=== PATIENT | female | born 1965 | race Caucasian/White ===

== ENCOUNTER 2021-07-15 12:25 | Emergency (ER) | payer OTHER, SELFPAY ==
[2021-07-15] VITALS (8 sets, daily range): BP systolic 121–140; BP diastolic 55–69; PULSE 45–56; RESP 16–17; TEMP 36.7–36.8; O2SAT 98–100; BMI 21.6
--- NOTE | 2021-07-15 12:49 | HMH.EDUTC ---
[facility] Disposition Clinical Impression: Abdominal pain Qualifiers: Abdominal location: unspecified location Qualified Code(s): R10.9 - Unspecified abdominal pain Disposition: Still a Patient Condition on Discharge: Fair Referrals: Jenaro Dodson MD [Primary Care Provider] - Medical Decision Making - Medical Records Medical records reviewed: No: I reviewed the patient's medical records. - Tyler Inquiry Pt receiving controlled substance: No Vital Signs: 07/15/21 12:40 Temperature 98.2 F Temperature Source Oral Pulse Rate [Left Radial] 55 L Respiratory Rate 17 Blood Pressure [Right Arm] 131/69 Blood Pressure Mean [Right Arm] 89 02 Sat by Pulse Oximetry 99 Medical Decision Narrative: She was transferred to the ER due to her abdominal pain and per her request. [facility] HPI - General Stated complaint: abd pain, back pain Time Seen by Provider: 07/15/21 12:49 Description of Symptoms (Recalled from Triage Doc. by RN): patient comes in today with complaints of back and right sided pain. patient states that it began 3 months ago and continues to get worse HEENT Symptoms (Recalled from RN notes): No Resp Symptoms (Recalled from RN notes): No Skin Symptoms (Recalled from RN notes): No MS Symptoms (Recalled from RN notes): Yes Functional Status (Recalled from RN notes): wnl - History of Present Illness Provider Complaint: She states that for the past 3 months she has right flank pain and lower abdominal pain. She had her appendix removed years ago. She denies any constipation, diarrhea, n/v and urinary complaints. Her pain worsened today is the reason she came here today. - Related Data Previous Rx's Medication Instructions Recorded Amoxicillin [Amoxicillin 500mg 500 mg PO TID #30 cap 03/06/19 Cap] Fluticasone Propionate [Flonase 1 spr NS DAILY #1 bottle 03/06/19 50mcg nasal spray 16gm] Allergies Allergy/AdvReac Type Severity Reaction Status Date / Time No Known Allergies Allergy Verified 07/15/21 12:43 - Worker's Comp Is this a Worker's Comp case?: No [facility] History - Hepatitis A Screen Attestation statement:: This patient has been screened for Hepatitis A risk factors. I have reviewed the patient's past medical history: Yes Medical History: Denies:: Cancer, Diabetes Mellitus Type 1, Diabetes Mellitus Type 2, MRSA Amputation: No - Social History Smoking Status: Current every day smoker # Packs/Day (cigarettes): 1 Alcohol Intake: never Occupational Status: employed ROS Obtained: Yes All systems reviewed & no additional complaints - Constitutional Constitutional: Denies chills, Denies fever(s), Denies poor appetite, Denies malaise - Eyes Eyes: Denies eye discharge - ENT Ears, Nose, Mouth, and Throat: Denies dizziness, Denies otalgia, Denies sore throat - Cardiovascular Cardiovascular: Denies chest pain - Respiratory Respiratory: Denies chest congestion, Denies cough - Gastrointestinal Gastrointestingal: Reports: as per HPI - Genitourinary Female Genitourinary: Denies dysuria, Reports flank pain, Denies urinary frequency, Denies urinary incontinence, Denies urinary hesitancy, Denies urinary urgency - Musculoskeletal Musculoskeletal: Reports back pain - Integumentary/Breasts Skin/Breast: Denies rash Physical Exam - General General appearance: alert, in no apparent distress - Head Head exam: atraumatic, normocephalic, normal inspection - Eye Eye exam: Present: normal appearance, PERRL, EOMI - ENT ENT exam: Present: normal exam, normal oropharynx, mucous membranes moist, TM's normal bilaterally, normal external ear exam - Neck Neck exam: Present: normal inspection, full ROM, trachea midline. Absent: meningismus, lymphadenopathy - Chest Chest inspection: Present: normal inspection, symmetric chest wall rise. Absent: tenderness - Respiratory Respiratory exam: Present: normal lung sounds bilaterally. Absent: respiratory distress - Cardiova
--- NOTE | 2021-07-15 13:35 | CT_ITS ---
FINAL REPORT CLINICAL HISTORY: hx malignancy, progressive right sided abd pain FINDINGS: CT OF THE ABDOMEN AND PELVIS WITH CONTRAST Axial CT images of the abdomen and pelvis were obtained after the administration of oral and iv contrast. Coronal reformatted images were also obtained and reviewed.This study was performed with techniques to keep radiation doses as low as reasonably achievable (ALARA). Individualized dose reduction techniques using automated exposure control or adjustment of mA and/or kV according to the patient's size were employed. Abdomen: There is mild bibasilar atelectasis.. The heart is normal in size. The liver has an unremarkable appearance, without evidence of mass or biliary ductal dilatation. There are gallstones in the gallbladder. The spleen is unremarkable. No adrenal mass is present. The tail of the pancreas is mildly prominent but without focal mass, of uncertain significance. The kidneys are normal, without evidence of mass or hydronephrosis. The aorta is normal in caliber. There is no free fluid or adenopathy. No mass or abnormal fluid collection is seen. Pelvis: The appendix is not seen consistent with history of prior appendectomy. The urinary bladder is unremarkable. No inflammatory process is seen. There is no evidence of mass or adenopathy. There is no evidence of bowel obstruction. There are prominent pelvic veins of uncertain significance which can be seen with pelvic congestion syndrome. IMPRESSION: Cholelithiasis. Prominent tail of the pancreas of uncertain significance. Consider follow-up CT or abdominal MRI. Prominent pelvic veins of uncertain significance which can be seen with pelvic congestion syndrome. Reviewed, Interpreted and Dictated by Hugo Rai III, MD Transcribed by Laurel Oh Authenticated and [facility]
--- NOTE | 2021-07-15 13:38 | HMH.EDGENADL ---
ED Disposition Clinical Impression: Cholelithiasis, Pancreatic abnormality Abdominal pain Qualifiers: Abdominal location: unspecified location Qualified Code(s): R10.9 - Unspecified abdominal pain Disposition: Still a Patient Condition on Discharge: Good Instructions: DI for Acute Abdominal Pain Referrals: Jenaro Dodson MD [Primary Care Provider] - - Critical Care Critical Care Time: No Attestation: On 07/15/21, the high probability of a clinically significant, sudden or life threatening deterioration of the following system(s) required my full and direct attention, intervention and personal management. The time I documented below is in addition to time spent performing reported procedures but includes the following listed in this critical care notation. Medical Decision Making - Tyler Inquiry Pt receiving controlled substance: No Vital Signs: 07/15/21 12:40 07/15/21 13:31 07/15/21 13:35 Temperature 98.2 F 98.0 F Temperature Source Oral Oral Pulse Rate 54 L Pulse Rate [Left Radial] 55 L 48 L Respiratory Rate 17 16 16 Blood Pressure 138/66 Blood Pressure [Right Arm] 131/69 125/66 Blood Pressure Mean 97 Blood Pressure Mean [Right Arm] 89 85 Blood Pressure Source [Right Arm] Automatic Cuff Blood Pressure Position [Right Arm] Sitting 02 Sat by Pulse Oximetry 99 100 100 Oxygen Delivery Method Room Air Room Air 07/15/21 14:01 07/15/21 14:23 07/15/21 15:24 Temperature Temperature Source Pulse Rate 52 L Pulse Rate [Left Radial] 56 L 50 L Respiratory Rate 16 Blood Pressure 138/56 L Blood Pressure [Right Arm] 138/56 L 133/55 L Blood Pressure Mean 83 Blood Pressure Mean [Right Arm] 83 81 Blood Pressure Source [Right Arm] Automatic Cuff Blood Pressure Position [Right Arm] Sitting Sitting 02 Sat by Pulse Oximetry 99 100 99 Oxygen Delivery Method Room Air Room Air Room Air 07/15/21 15:31 Temperature Temperature Source Pulse Rate 50 L Pulse Rate [Left Radial] Respiratory Rate 16 Blood Pressure 121/58 L Blood Pressure [Right Arm] Blood Pressure Mean 72 Blood Pressure Mean [Right Arm] Blood Pressure Source [Right Arm] Blood Pressure Position [Right Arm] 02 Sat by Pulse Oximetry 100 Oxygen Delivery Method Room Air - Lab Data Lab Results 07/15/21 13:03: Urine Color Yellow, Urine Appearance Clear, Urine pH 6.0, Ur Specific [place] 1.025, Urine Protein Negative, Urine Glucose (UA) Negative, Urine Ketones Negative, Urine Blood Trace, Urine Nitrate Negative, Urine Bilirubin Negative, Urine Urobilinogen 0.2, Ur Leukocyte Esterase Negative 07/15/21 13:44: WBC 4.7 L, RBC 3.81 L, Hgb 12.2, Hct 37.9, MCV 99.5 H, MCH 32.1 H, MCHC 32.3, RDW 13.6, Plt Count 248, MPV 8.3, Neut % (Auto) 46.8, Lymph % (Auto) 40.6, [place] % (Auto) 8.8, Eos % (Auto) 2.5, Baso % (Auto) 1.3, Neut # (Auto) 2.2, Lymph # (Auto) 1.9, [place] # (Auto) 0.4, Eos # (Auto) 0.1, Baso # (Auto) 0.1 07/15/21 13:44: Sodium 138, Potassium 4.1, Chloride 106, Carbon Dioxide 28, Anion Gap 8.1, BUN 12, Creatinine 0.60, Estimated Creat Clear 97, Estimated GFR 103, Est GFR ( Amer) 125, Glucose 106 H, Calcium 9.2, Total Bilirubin 0.4, AST 25, ALT 14, Alkaline Phosphatase 51, Total Protein 7.2, Albumin 4.4, Globulin 2.8, Albumin/Globulin Ratio 1.6, Lipase 78 07/15/21 13:44: Lactate 0.6 L Result diagrams: 07/15/21 13:44 07/15/21 13:44 Orders (Tests/Meds): ED MEDICATIONS Discontinued Medications Generic Name Dose Route Start Last Admin Trade Name No PRN Reason Stop Dose Admin Iopamidol 75 ml 07/15/21 14:44 07/15/21 14:45 Iopamidol-370 (76%);100ml Bottle IV 07/15/21 14:45 75 ml ONCE ONE Administration Ketorolac Tromethamine 15 mg 07/15/21 13:37 07/15/21 13:43 Ketorolac 30mg/Ml Vial IV 07/15/21 13:38 15 mg ONCE ONE Administration Sodium Chloride 10 ml 07/15/21 14:44 07/15/21 14:45 Sodium Chloride 0.9% 10ml Syr (Rad Only) IV 07/15/21 14:45 10 ml ONCE ONE Administratio
[2021-07-15 13:46] LABS: Apearance,Urine Clear (Clear); Bilirubin,Urine Negative (Negative); Blood, Urine Trace (Negative); Color,Urine Yellow (Yellow); Glucose,Urine (UA) Negative (Negative); Ketones,Urine Negative (Negative); Protein,Urine Negative (Negative); Specific Gravity, Urine 1.025 (1.005-1.030); UTC Leukocyte Esterase,Urine Negative (Negative); UTC Nitrate,Urine Negative (Negative); Urobilinogen,Urine 0.2 EU/dl (0.2)
[2021-07-15 14:01] LABS: Basophils # 0.1 K/mm3 (0-0.2); Basophils % 1.3 % (0.1-2.0); Chloride 106 mmol/L (98-107); Eosinophils # 0.1 K/mm3 (0.0-0.4); Eosinophils % 2.5 % (0.1-12.0); Hematocrit 37.9 % (37.0-47.0); Hemoglobin 12.2 g/dL (12.2-16.2); Lymphocytes # 1.9 K/mm3 (0.7-4.5); Lymphocytes % 40.6 % (10-50); Mean Corpuscular HGB Conc 32.3 g/dL (31.8-35.4); Mean Corpuscular Hemoglobin 32.1 pg (27.0-31.2); Mean Corpuscular Volume 99.5 fl (81-99); Mean Platelet Volume 8.3 fl (7.4-10.4); Monocytes # 0.4 K/mm3 (0.1-1.0); Monocytes % 8.8 % (1.7-9.3); Neutrophils # 2.2 K/mm3 (1.8-7.8); Neutrophils % 46.8 % (37.0-80.0); Platelet Count 248 K/mm3 (142-424); Potassium 4.1 mmoL/L (3.5-5.1); Red Blood Count 3.81 M/mm3 (4.20-5.40); Red Cell Distribution Width 13.6 % (11.5-17.5); Sodium 138 mmol/L (136-145); White Blood Count 4.7 K/mm3 (4.8-10.8)
[2021-07-15 14:04] LABS: Alanine Aminotransferase 14 U/L (12-78); Albumin Level 4.4 g/dl (3.5-5.0); Albumin/Globulin Ratio 1.6 (1.1-1.8); Alkaline Phosphatase 51 U/L (38-126); Anion Gap 8.1 mEq/L (5-15); Aspartate Amino Transferase 25 U/L (14-36); Bilirubin,Total 0.4 mg/dl (0.2-1.3); Blood Urea Nitrogen 12 mg/dl (7-17); Calcium 9.2 mg/dl (8.4-10.2); Carbon Dioxide 28 mmol/L (22.0-30.0); Creatinine Clearance Estimated 97 mL/min (50-200); Estimated Glomerular Filt Rate 103 ml/min (>60); GFR (African American) 125 ML/MIN (>60); Globulin 2.8 g/dL (1.3-3.2); Glucose 106 mg/dl (74-100); Lactic Acid 0.6 mmol/L (0.7-2.1); Lipase 78 U/L (23-300); Total Protein,Serum 7.2 g/dl (6.3-8.2)
--- NOTE | 2021-07-15 14:24 | PC.NURSE ---
checked on status of CT, contacted radiology at this time
--- NOTE | 2021-07-15 14:24 | PC.NURSE ---
Called ED CT phone and no answer; Called radiology and spoke to Marky letting her know that we had a CT in room 9. She was going to inform [employer]
--- NOTE | 2021-07-15 14:25 | PC.NURSE ---
Dr. Bunn at speaking with patient
--- NOTE | 2021-07-15 14:29 | PC.NURSE ---
pt to radiology with lead principal technical architect by wheelchair
--- NOTE | 2021-07-15 15:12 | PC.NURSE ---
checked on pt at this time, additional warm blanket given to pt. Pt states no other needs at this time. notified pt we are waiting on Ct scan results. Will continue to monitor
== END 2021-07-15 16:36 | disposition home or self-care (01) ==
LOC: UTC 13:06 → ER 13:19
PROVIDERS: Student in an Organized Health Care Education/Training Program; Emergency Provider Nurse Practitioner Family; PCP Family Medicine
DX: R10.31 Right lower quadrant pain (principal); R30.0 Dysuria; R31.9 Hematuria, unspecified; R11.2 Nausea with vomiting, unspecified; R19.7 Diarrhea, unspecified; M54.9 Dorsalgia, unspecified; E03.9 Hypothyroidism, unspecified; F32.A Depression, unspecified; R53.82 Chronic fatigue, unspecified; N83.209 Unspecified ovarian cyst, unspecified side; F17.210 Nicotine dependence, cigarettes, uncomplicated; Z79.899 Other long term (current) drug therapy; Z78.0 Asymptomatic menopausal state
CPT/HCPCS: 74177; 80053; 81003; 83605; 83690; 85025; 87086; 96374; 99285; Q9967

== ENCOUNTER → 2021-07-27 08:48 | Outpatient (CLI) | payer OTHER, SELFPAY ==
--- NOTE | 2021-07-27 08:48 | US_ITS ---
FINAL REPORT CLINICAL HISTORY: RLQ pain; abnormal CT scan FINDINGS: Transvaginal sonographic images of the pelvis were obtained. The uterus measures 5.2 x 2.8 x 3.6 cm. The endometrium measures 4 mm, which is within normal limits. No uterine mass is identified. The right ovary has been removed. The left ovary measures 2.2 cm in length. Normal blood flow seen to the left ovary. There is no evidence of free fluid. There are prominent pelvic vessels, left greater than right, of uncertain significance can be seen with pelvic congestion syndrome. IMPRESSION: Prominent pelvic vessels which can be seen with pelvic congestion syndrome. Absent right ovary. Reviewed, Interpreted and Dictated by Hugo Rai III, MD Transcribed by Ana María Taylor Authenticated and [facility]
--- NOTE | 2021-07-27 08:48 | US_ITS ---
FINAL REPORT CLINICAL HISTORY: RUQ pain; back pain FINDINGS: Sonographic images of the right upper quadrant were obtained. The pancreas is partially obscured.The liver has an unremarkable appearance. There are gallstones in the gallbladder. There is no evidence of biliary ductal dilatation.The common duct measures 2 mm. Limited images of the right kidney are unremarkable. IMPRESSION: Cholelithiasis. Reviewed, Interpreted and Dictated by Hugo Rai III, MD Transcribed by Ana María Taylor Authenticated and [facility]
--- NOTE | 2021-07-27 09:51 | MR_ITS ---
FINAL REPORT CLINICAL HISTORY: Pancreas protocol. ABNORMAL CT SCAN. NAUSEA. RIGHT UPPER QUADRANT ABD PAIN. 12ML PROHANCE GIVEN. COMPARISON: CT scan of the abdomen and pelvis dated July 15, 2021 FINDINGS: MRCP was also performed, 3D imaging was obtained and reviewed. Multiplanar MR imaging of the abdomen was performed without and with contrast. Images of the liver reveal no evidence of mass. There is no evidence of biliary ductal dilatation. There is decreased signal in the dependent portion of the gallbladder consistent with gallstones. There is no evidence of bile duct stone or stricture. The visualized pancreatic duct is normal. The tail the pancreas again appears somewhat prominent but no evidence of mass or contrast enhancement is seen within the pancreas and may represent variation. No other mass or adenopathy is identified. No abnormal fluid collection is seen. No abnormal contrast enhancement is seen on the postcontrast images. IMPRESSION: Cholelithiasis. No evidence of bile duct stone or stricture. Persistent prominence of the tail of the pancreas without mass or contrast enhancement. Reviewed, Interpreted and Dictated by Hugo Rai III, MD Transcribed by Laurel Oh Authenticated and . [facility]
== END ==
PROVIDERS: PCP Family Medicine; Visit Provider Surgery
DX: R10.9 Unspecified abdominal pain (principal); R10.2 Pelvic and perineal pain; Q45.3 Other congenital malformations of pancreas and pancreatic duct
CPT/HCPCS: 74183; 76705; 76830; A9576

== ENCOUNTER → 2021-08-07 10:07 | Outpatient (CLI) | payer OTHER, SELFPAY ==
[2021-08-07 10:35] LABS: Basophils # 0.1 K/mm3 (0-0.2); Basophils % 2.5 % (0.1-2.0); Eosinophils # 0.2 K/mm3 (0.0-0.4); Eosinophils % 3.5 % (0.1-12.0); Hematocrit 39.2 % (37.0-47.0); Hemoglobin 12.1 g/dL (12.2-16.2); Lymphocytes % 44.4 % (10-50); Mean Corpuscular HGB Conc 30.9 g/dL (31.8-35.4); Mean Corpuscular Hemoglobin 31.6 pg (27.0-31.2); Mean Corpuscular Volume 102.3 fl (81-99); Mean Platelet Volume 8.8 fl (7.4-10.4); Monocytes # 0.4 K/mm3 (0.1-1.0); Neutrophils # 1.8 K/mm3 (1.8-7.8); Neutrophils % 39.6 % (37.0-80.0); Platelet Count 261 K/mm3 (142-424); Red Blood Count 3.83 M/mm3 (4.20-5.40); Red Cell Distribution Width 13.4 % (11.5-17.5); White Blood Count 4.4 K/mm3 (4.8-10.8)
[2021-08-07 10:58] LABS: Chloride 108 mmol/L (98-107); Potassium 5.1 mmoL/L (3.5-5.1); Sodium 138 mmol/L (136-145)
[2021-08-07 11:01] LABS: Alanine Aminotransferase 13 U/L (12-78); Albumin Level 4.3 g/dl (3.5-5.0); Albumin/Globulin Ratio 1.7 (1.1-1.8); Alkaline Phosphatase 46 U/L (38-126); Anion Gap 7.1 mEq/L (5-15); Aspartate Amino Transferase 23 U/L (14-36); Bilirubin,Total 0.4 mg/dl (0.2-1.3); Blood Urea Nitrogen 12 mg/dl (7-17); Calcium 9.2 mg/dl (8.4-10.2); Carbon Dioxide 28 mmol/L (22.0-30.0); Estimated Glomerular Filt Rate 87 ml/min (>60); GFR (African American) 105 ML/MIN (>60); Globulin 2.5 g/dL (1.3-3.2); Glucose 87 mg/dl (74-100); Total Protein,Serum 6.8 g/dl (6.3-8.2)
== END ==
PROVIDERS: PCP Family Medicine; Visit Provider Surgery
DX: Z01.812 Encounter for preprocedural laboratory examination (principal); Z20.822 Contact with and (suspected) exposure to COVID-19
CPT/HCPCS: 36415; 80053; 85025; C9803; U0003; U0005

== ENCOUNTER 2021-08-10 09:54 | Day surgery (SDC) | payer OTHER, SELFPAY ==
[2021-08-05 09:51] VITALS: BMI 21.6
[2021-08-10] VITALS (11 sets, daily range): BP systolic 108–138; BP diastolic 61–99; PULSE 48–88; RESP 15–18; TEMP 36.2–43; O2SAT 85–100
--- NOTE | 2021-08-10 11:23 | HMH.ANESCL ---
[facility] Anesthesia Checklist - Patient Identification Patient Identification: Arm Band - Structural Data Admitted From: Home Planned Operative Procedure/s: Laparoscopic Cholecystectomy Consent for Planned Operative Procedure(s) Verified: Yes Verified Documents: Surgical Consent, History and Physical - NPO Status Verified Time NPO: 00:00 - Additional verifications Anesthesia Reactions: No Hx Blood Transfusions: No Blood Transfusion Reaction: No - Airway Assessment C-Spine Mobility Assessed: Yes (mp2) TMJ Mobility Assessed: Yes Dentition: Good Dentition - Neurological Assessment Level of Consciousness: Awake, Alert - Anesthesia Plan Anesthesia Risk discussed: Yes Anesthesia Plan: Verified ASA Class: II Anesthesia Type: General [facility] History I have reviewed the patient's past medical history: Yes Medical History: Reports:: Anxiety Denies:: Cancer, Diabetes Mellitus Type 1, Diabetes Mellitus Type 2, Internal Pacemaker, MRSA, Seizures *Have you ever received a pneumonia vaccine?: No *Have you received a flu vaccine this season?: No Other Medical History: Reports: Hypothyroidism. Denies: Blood Transfusion Reaction Anesthesia experience/problems:: nac Other Surgeries: Yes: Other. No: Pacemaker Amputation: No - *Social History Last grade of school completed: 11th or 12th Smoking Status: Current every day smoker Tobacco Type: e-cigarettes # Packs/Day (cigarettes): 1 Alcohol Intake: never Substance Use Type: denies use *Occupational Status:: employed Housing: house Household Members: spouse *Travel in the last 8 weeks: None Family Hx:: No significant family history
--- NOTE | 2021-08-10 13:43 | HMH.OPNOTE ---
Date of procedure: 08/10/21 Pre-op Diagnosis:: Symptomatic gallstones Post-op Diagnosis:: Same Procedure performed:: Laparoscopic cholecystectomy Surgeon:: Hugo Arreola MD Anesthesia: DIPESH Estimated blood loss (mL): 15 Clinical Note:: Patient presents to the office for cholecystectomy. She Is a 55-year-old female referred by the emergency department for gallstones.? Her primary care provider is Dillon? MD [facility].? She had presented to the emergency department on 07/15/2021 with a several month history of symptoms of right-sided abdominal pain in and right-sided back pain.? 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 She describes pain in the right hemiabdomen and epigastrium for about 3 months.? It is characterized as a soreness .? She has occasional sharp pains.? 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 She does have some exacerbations positionally.? Her symptoms have been progressive.? She does describe some nausea, bloating, and diarrhea.? She states that she was told she had microscopic hematuria based on urinalysis in the emergency department but denies any gross hematuria.? Work-up in the emergency department included CT scan which revealed findings of cholelithiasis.? She also had prominent tail of the pancreas of uncertain significance.? Recommendations by radiology were for follow-up CT scan or abdominal MRI.? She also had prominent pelvic veins of uncertain significance which was felt to be potentially seen with pelvic congestion syndrome .? After my initial consultation due to the somewhat atypical symptoms as well as the findings in her pelvis and pancreas I had her undergo definitive ultrasound of the gallbladder. This reveals uncomplicated gallstones. She saw gynecology for findings of pelvic congestion syndrome. Recommendations were made. She did undergo MRI of the pancreas which revealed some prominence of the tail the pancreas which is felt to be anatomic variant without mass or cyst. She has had significantly progressive symptoms of pain in the right upper quadrant with radiation to her right back and shoulder. She has had severe epigastric pain. This often takes her breath. She had contemplated going to the emergency department. She wished to pursue cholecystectomy. Operative findings:: She had a somewhat distended gallbladder. Mildly enlarged liver. Operative note:: Consent was obtained and patient was taken to the operating room. She was given preoperative intravenous antibiotics. In the operating room she was placed in a supine position. General anesthesia was induced via endotracheal tube. Abdomen was prepped and draped in the standard surgical fashion. Subumbilical skin incision was made and while performing abdominal wall lift Veress needle was inserted. CO2 pneumoperitoneum was achieved to 15 mmHg. 11 mm optical trocar was inserted at the umbilicus. Intraperitoneal contents were visualized. She was positioned in reverse Trendelenburg left side down. A couple 5 mm trochars were inserted in the right upper abdomen. 10 mm trocar was inserted in the epigastrium. Gallbladder was retracted anteriorly and superiorly over the dome of the liver. Infundibulum of the gallbladder was retracted anterior laterally. Blunt dissection was carried out at the neck of the gallbladder bluntly incising the visceral peritoneum. Dissection was carried out clearly identifying the cystic duct and cystic artery. Cystic duct was multiply clipped and sharply divided. Cystic artery was carefully coagulated with MINDY ultrasonic robotic mj and divided. Gallbladder was dissected free from the liver in a retrograde fashion using MINDY ultrasonic harmonic mj. Gallbladder was placed within an Endo Catch retrieval device and removed from the peritoneal cavity via the umbilical trocar site. There was good hemostasis. Mansi w
--- NOTE | 2021-08-10 13:54 | P.PN_ITS ---
[facility] Anesthesia Record Part I Intake, IV Amount: 800 Estimated blood loss (mL): 20 Urine output (mL): 0 Blood Pressure: 133/99 SaO2: 98 Pulse Rate: 83 Respiratory Rate: 15 Temperature: 97.2 F Patient is:: Awake Stable to PACU at:: 13:50
--- NOTE | 2021-08-10 14:25 | SUR.PHASEII ---
Rhythm strip printed in PACU unable to pick up attendant accurate reading due to patient shivering. Rhythm rechecked upon arrival to post-op and was NSR but unable to print strip for chart D/T equipment issue. Witnessed per Larisa Hebert RN
--- NOTE | 2021-08-11 08:04 | HMH.ANESII ---
[facility] Anesthesia Record Part II Discharge Time: 14:20 Destination: Surgical Day Care (OP Surgery) PACU nurse assessment reviewed?: Yes Patient Condition:: Good Anesthesia Complications:: None Swallowing reflex intact?: Yes Cyanosis?: No Blood Pressure: 122/73 Pulse Rate: 70 Temperature: 97.2 F Mental Status: Alert & Oriented Pain level:: 0 Nausea and/or vomitting:: None Intake, IV Amount: 0
[2021-08-11 08:05] VITALS: BP 122/73; PULSE 70; TEMP 36.2
== END 2021-08-10 14:55 | disposition home or self-care (01) ==
LOC: OR 09:54
PROVIDERS: PCP Family Medicine; Visit Provider Surgery
PROC: 0FT44ZZ Resection of Gallbladder, Percutaneous Endoscopic Approach (ICD-10-PCS; CPT 47562; principal; 2021-08-10 11:30)
DX: K80.12 Calculus of gallbladder with acute and chronic cholecystitis without obstruction (principal); F41.9 Anxiety disorder, unspecified; Z72.0 Tobacco use; Z79.899 Other long term (current) drug therapy
CPT/HCPCS: 47562; 96374; J2405

== ENCOUNTER → 2022-03-09 09:40 | Outpatient (CLI) | payer OTHER, SELFPAY ==
--- NOTE | 2022-03-09 09:40 | CT_ITS ---
FINAL REPORT TECHNIQUE: After the administration of intravenous contrast, axial images were obtained through the abdomen and pelvis by computed tomography. The study was performed with techniques to keep radiation dose as low as reasonably achievable, (ALARA). Individual dose reduction techniques using automated exposure control or adjustment of mA and/or kV according to the patient's size were employed. CLINICAL HISTORY: pancreatic protocol. right sided abd pain COMPARISON: 07/15/2021 and MRI dated 07/27/2021 FINDINGS: Abdomen: The lung bases are clear. The liver is normal in size and attenuation. There has been interval cholecystectomy. There is no evidence of biliary ductal dilatation. The spleen is unremarkable. The adrenals are normal. There is persistent fullness of the pancreatic tail without a well-defined mass. There is a less than 1 cm left renal cyst. The aorta is normal in caliber. There is no free fluid or adenopathy. Pelvis: The appendix is not identified. The urinary bladder is unremarkable. There is no free fluid or adenopathy. IMPRESSION: Persistent fullness of the pancreatic tail without a well-defined mass. Reviewed, Interpreted and Dictated by Hugo Rai III, MD Transcribed by Cristiana Brock Authenticated and [facility]
== END ==
PROVIDERS: PCP Family Medicine; Visit Provider Surgery
DX: R10.9 Unspecified abdominal pain (principal)
CPT/HCPCS: 74177; Q9967

== ENCOUNTER 2022-05-13 06:28 | Day surgery (SDC) | payer OTHER, SELFPAY ==
[2022-05-13] VITALS (8 sets, daily range): BP systolic 85–124; BP diastolic 50–71; PULSE 56–85; RESP 16–18; TEMP 36.1–36.3; O2SAT 94–100; BMI 21.2
--- NOTE | 2022-05-13 07:08 | EXP.ANES.CKL ---
[facility] Disclaimer: The information contained in this section may have been updated after the patient was seen, as this information can be updated by other users. 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 caffeine: Yes special olga needs: No agree to transfusion: No do you feel safe at home: Yes victim of physical abuse: No victim of emotional abuse: No victim of sexual abuse: No would you like helpful sources: No [facility] Anesthesia Checklist Patient Identification Patient Identification: Arm Band and Verbal (Name & ) Structural Data Admitted From: Home Planned Operative Procedure/s: EGD/Colonoscopy Consent for Planned Operative Procedure(s) Verified: Yes NPO Status Verified Time NPO: 00:00 Additional verifications Anesthesia Reactions: No Hx Blood Transfusions: No Blood Transfusion Reaction: No Airway Assessment C-Spine Mobility Assessed: Yes TMJ Mobility Assessed: Yes Dentition: Good Dentition Neurological Assessment Level of Consciousness: Awake Hx Seizures: No Numbness or tingling in extremities: No Anesthesia Plan Anesthesia Risk discussed: Yes Anesthesia Plan: Verified ASA Class: II Anesthesia Type: MAC
--- NOTE | 2022-05-13 08:14 | HMH.SCOPE ---
Procedure: Date: 05/13/22 Patient Date of :: 1965 Procedure Performed:: Esophagogastroduodenoscopy with biopsies Total colonoscopy to terminal ileum with polypectomy using snare and biopsy forceps Indications:: Patient presents for EGD and colonoscopy.? She is a 56-year-old female whom I had seen previously for gallbladder disease.? She had undergone laparoscopic cholecystectomy on 08/10/2021.? She had been having symptoms of severe epigastric pain and pain in the right upper quadrant with radiation into her back.? Pathology revealed chronic cholecystitis with cholelithiasis.? She does describe some ongoing symptoms of difficulty laying on her right side when sleeping on that side.? She was found to have a somewhat distended gallbladder with mildly enlarged liver.? Patient is always had some symptoms positionally.? She had been evaluated in the emergency department prior to her cholecystectomy and imaging revealed gallstones but she also had prominence of the tail of the pancreas of uncertain significance.? She had an MRI of the abdomen (pancreas) which revealed prominence of the tail the pancreas which was felt to be anatomic variant without mass or cyst.? She recently presented to the office with some ongoing symptoms of some severe epigastric pain.? She states that is often takes her breath.? This is similar to before.? She describes it as feeling as though she is punched in the abdomen.? It feels like a ball.? She has had some diarrhea.? She denies any prior history of ulcer disease.? She was scheduled for colonoscopy with me in May.? I felt that the unclear as to the etiology of her constellation of symptoms.? I had her undergo CT scan with pancreatic protocol.? I felt that given the diarrhea it is possible she could have a functional pancreatic lesion.? CT scan reveals persistent fullness of the pancreatic tail without mass or cyst. I had plan to expedite colonoscopy and EGD due to her upper abdominal symptoms. However the patient wished to wait until May to perform EGD and colonoscopy. She does state that her upper abdominal symptoms have improved significantly. She has retired from work and she feels that this may have some influence on this. Performing Provider:: Hugo Arreola MD Referring Provider:: Romaine Dodson MD Sedation:: MAC sedation Procedure:: Patient history was obtained and appropriate physical examination was performed. Patient's medications and allergies were reviewed. Informed consent was obtained after explaining the benefits, alternatives, and risks of the procedure including, but not limited to, bleeding, perforation, missed lesions, and adverse reaction to anesthesia medications. Patient was transported to endoscopy procedure room. Patient was connected to monitoring devices. Throughout the procedure the patient's blood pressure, pulse, and oxygen saturations were monitored continuously. Patient identification and planned procedure were verified by the staff. Attention was first turned to upper endoscopy. Olympus endoscope was inserted via the oropharynx. Esophagus was cannulated. Overall esophagus appeared relatively unremarkable with some minor esophageal dysmotility and minimal chronic esophagitis. Gastroesophageal junction was encountered at 38 cm. Stomach was cannulated and insufflated. Retroflexion revealed no evidence of any pathologic hiatal hernia. There was some linear gastropathy in the antrum. Pylorus was traversed. Duodenum appeared unremarkable. Endoscope was withdrawn into the gastric lumen and a couple of antral biopsies were obtained. Couple of distal esophageal biopsies were obtained at the gastroesophageal junction to evaluate for Mendosa's esophagus. A couple of distal esophageal biopsies were obtained to assess for chronic esophagitis. Stomach was desufflated and the endoscope was withdrawn. Patient was positioned in lateral decubitus position for colonoscopy. Digital anorectal
== END 2022-05-13 09:21 | disposition home or self-care (01) ==
PROVIDERS: PCP Family Medicine; Visit Provider Surgery
PROC: 0DJ08ZZ Inspection of Upper Intestinal Tract, Via Natural or Artificial Opening Endoscopic (ICD-10-PCS; CPT 43235; principal; 2022-05-13 07:30)
DX: Z12.11 Encounter for screening for malignant neoplasm of colon (principal); D12.5 Benign neoplasm of sigmoid colon; K57.30 Diverticulosis of large intestine without perforation or abscess without bleeding; K31.9 Disease of stomach and duodenum, unspecified; K20.90 Esophagitis, unspecified without bleeding; F17.210 Nicotine dependence, cigarettes, uncomplicated; Z79.899 Other long term (current) drug therapy
CPT/HCPCS: 43239; 45380; 45385; J2704

== ENCOUNTER → 2022-12-21 09:09 | Outpatient (CLI) | payer OTHER, SELFPAY ==
[2022-12-21 10:30] LABS: Free T4 (Free Thyroxine) 1.43 ng/dl (0.78-2.19)
[2022-12-21 10:43] LABS: Thyroid Stimulating Hormone 3.97 uIU/mL (0.465-4.68)
[2022-12-22 15:07] LABS: Tissue Transglutaminase IgA Ab <2 U/mL (0-3)
== END ==
PROVIDERS: PCP Family Medicine; Visit Provider Internal Medicine Endocrinology, Diabetes & Metabolism
DX: E03.9 Hypothyroidism, unspecified (principal)
CPT/HCPCS: 36415; 83516; 84439; 84443

== ENCOUNTER 2023-05-09 09:42 | Outpatient (CLI) | payer OTHER, SELFPAY ==
--- NOTE | 2023-05-09 09:49 | XR_ITS ---
FINAL REPORT CLINICAL HISTORY: RT KNEE PAIN..knot on the back FINDINGS: Right knee Four views were obtained. There is no acute fracture or dislocation. There are mild degenerative changes. No joint effusion is identified. No soft tissue abnormality is identified. IMPRESSION: Mild degenerative changes. Reviewed, Interpreted and Dictated by Hugo Rai III, MD Transcribed by Cristiana Brock Authenticated and [facility]
== END 2023-05-09 23:59 ==
LOC: RAD 09:44
PROVIDERS: PCP Nurse Practitioner; Visit Provider Nurse Practitioner
DX: M25.561 Pain in right knee (principal)
CPT/HCPCS: 73562

== ENCOUNTER 2023-05-17 10:03 | Outpatient (CLI) | payer OTHER, SELFPAY ==
--- NOTE | 2023-05-17 10:10 | US_ITS ---
FINAL REPORT TECHNIQUE: Limited sonographic imaging of the right posterior knee was obtained. CLINICAL HISTORY: RT LOWER EXTREMITY LUMP ON SKIN FINDINGS: There is a 6 cm fluid collection posterior to the right knee which may represent a large popliteal cyst. No other mass or fluid collection is identified. IMPRESSION: 6 cm fluid collection posterior right knee which represent large popliteal cyst. Reviewed, Interpreted and Dictated by Hugo Rai III, MD Transcribed by Patricia Curiel Authenticated and [facility]
== END 2023-05-17 23:59 | disposition home or self-care (01) ==
LOC: RAD 10:03
PROVIDERS: PCP Nurse Practitioner; Visit Provider Nurse Practitioner
DX: R22.41 Localized swelling, mass and lump, right lower limb (principal)
CPT/HCPCS: 76882

== ENCOUNTER 2023-07-26 08:08 | Emergency (ER) | payer OTHER, SELFPAY ==
[2023-07-26 08:10] VITALS: BP 126/75; PULSE 66; RESP 20; TEMP 36.9; O2SAT 100; BMI 21.6
--- NOTE | 2023-07-26 08:25 | EXP.UTC ---
Discharge Plan Disposition Patient Disposition: Home, Self-Care Condition: Good Prescriptions Prescriptions: New cxjoxzrr-rxlyidysq-UP 3.5-10,000-1 mg/mL-unit/mL-% solution 4 drp Ear-Left Q8H 7 Days Qty: 10 0RF amoxicillin 875 mg tablet 875 mg PO Q12H Qty: 20 0RF No Action levothyroxine 75 mcg tablet 75 mcg PO DAILY Patient Comments: TAKE 1 TABLET BY MOUTH ONCE DAILY IN THE MORNING ON AN EMPTY STOMACH sertraline 50 mg tablet 50 mg PO DAILY Patient Comments: TAKE 1 TABLET BY MOUTH ONCE DAILY FOR 90 DAYS Referrals Follow up/Referrals: Guera Mcclain APRN [Primary Care Provider] - See instructions Activity Restrictions/Add. Instructions Additional Instructions/Restrictions: Take tylenol or ibuprofen for pain or fever. Use the medications as directed. Follow up with your regular doctor. GO TO THE ER FOR ANY WORSENING SYMPTOMS Clinical Impressions Clinical Impression: Acute left otitis media, Left ear impacted cerumen Instructions Patient Instructions: Cerumen Impaction, Middle Ear Infection, How to Instill Ear Drops Discharge ED Provider: Kai Hendrickson [facility] General Stated complaint: ear pain Mode of Arrival: Ambulatory Source of Information: Patient Limitations: No Limitations Time Seen by Provider: 07/26/23 08:25 Description of Symptoms (Recalled from Triage Doc. by RN): PATIENT C/O LEFT EAR PAIN X 12 DAYS HEENT Symptoms (Recalled from RN notes): Yes Resp Symptoms (Recalled from RN notes): No Skin Symptoms (Recalled from RN notes): No MS Symptoms (Recalled from RN notes): No Functional Status (Recalled from RN notes): WNL History of Present Illness Provider Complaint: She states that for the past 12 days she has had decreased hearing in her left ear. She has a history of getting ear wax impactions and that is what she thinks is happening. She states that she has tried to remove the ear wax herself, but this just resulted in her ear becoming painful. Related Data Home Medications Medication Instructions Recorded Confirmed levothyroxine 75 mcg tablet 75 mcg PO DAILY 07/26/23 07/26/23 sertraline 50 mg tablet 50 mg PO DAILY 07/26/23 07/26/23 Previous Rx's Medication Instructions Recorded amoxicillin 875 mg tablet 875 mg PO Q12H #20 tabs 07/26/23 wsaxjtee-eqxueabzf-keyvwgvie 3.5 4 drp Ear-Left Q8H 7 days #10 mL 07/26/23 mg/mL-10,000 unit/mL-1 % ear solution Allergies Allergy/AdvReac Type Severity Reaction Status Date / Time No Known Allergies Allergy Verified 06/20/23 10:14 Worker's Comp Is this a Worker's Comp case?: No [facility] Disclaimer: The information contained in this section may have been updated after the patient was seen, as this information can be updated by other users. 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 caffeine: Yes special olga needs: No agree to transfusion: No do you feel safe at home: Yes victim of physical abuse: No victim of emotional abuse: No victim of sexual abuse: No would you like helpful sources: No ROS Obtained: Yes All systems reviewed & no additional complaints except as documented Constitutional Constitutional: Denies chills, Reports fever(s) and Reports poor appetite Eyes Eyes: Denies eye discharge ENT Ears, Nose, Mouth, and Throat: Denies ear discharge, Reports otalgia, Denies hearing loss, Denies sinus pain and Reports sore throat Cardiovascular Cardiovascular: Denies chest pain and Denies dyspnea Respiratory Respiratory: Denies chest congestion, Reports cough and Denies dyspnea Gastrointestinal Gastrointestingal: Denies abdominal pain, diarrhea, nausea or vomiting Musculoskeletal Musculoskeletal: Denies arthralgias Integumentary/Breasts Skin/Breast: Denies rash Physical Exam General General appearance: alert and in no apparent distress Head Head exam: atraumatic, normocephalic and normal inspection Eye Eye exam: Present normal appearance, PERRL and EOMI ENT ENT exam: Present normal oropharynx, mucous membranes moist and normal external ear exam Expanded ENT Exam External ear exam: Present normal external inspection TM/Canal exam: Left TM: erythema and cerumen impaction Nose exam: Absent sinus tenderness Nasal speculum exam: Bilateral: normal Mouth exam: Present normal external inspection; Absent drooling Teeth exam: Present normal inspection Throat exam: Present normal inspection Neck Neck exam: Present normal inspection, full ROM and trachea midline; Absent meningismus or lymphadenopathy Chest Chest inspection: Present normal inspection and symmetric chest wall rise; Absent tenderness Respiratory Respiratory exam: Present normal lung sounds bilaterally; Absent respiratory distress Cardiovascular Cardiovascular exam: Present regular rate and normal rhythm; Absent JVD Abdominal Exam Abdominal exam: Present soft and normal bowel sounds; Absent distention, tenderness or guarding Extremities Exam Extremities exam: Present normal inspection, full ROM and normal capillary refill; Absent calf tenderness Back Exam Back exam: Present normal inspection; Absent tenderness Neurological Exam Neurological exam: Present alert and oriented X3 Psychiatric Psychiatric exam: Present normal affect and normal mood Skin Skin exam: Present warm, dry, intact and normal color Lymphatic Lymphatic Findings: no adenopathy Medical Decision Making Medical Records Medical records reviewed: No I reviewed the patient's medical records. [place] Inquiry Pt receiving controlled substance: No Vital Signs: 07/26/23 08:10 Temperature 98.4 F Temperature Source Oral Pulse Rate [Left Brachial] 66 Respiratory Rate 20 Blood Pressure [Left Arm] 126/75 Blood Pressure Mean [Left Arm] 92 Blood Pressure Source [Left Arm] Automatic Cuff Blood Pressure Position [Left Arm] Sitting 02 Sat by Pulse Oximetry 100 Oxygen Delivery Method Room Air Procedures Risk/Benefits of Procedure(s) Were Explained: Yes Ear Wax Removal Right Ear: Results: Re-examined: cerumen removed completely TM Examination: TM(s) erythematous Ear Canal Exam: atraumatic Patient Tolerated Procedure: well Complications: no problems Technique: ear canal irrigated Additional Comments: She tolerated this well. her left ear canal was erythemic and her left t.m. was erythemic but intact.
[2023-07-26 08:58] VITALS: BP 126/75; PULSE 66; RESP 20; TEMP 36.9; O2SAT 100
== END 2023-07-26 08:59 | disposition home or self-care (01) ==
PROVIDERS: Emergency Provider Nurse Practitioner Family; PCP Nurse Practitioner
DX: H66.92 Otitis media, unspecified, left ear (principal); H61.22 Impacted cerumen, left ear; H92.02 Otalgia, left ear; F17.290 Nicotine dependence, other tobacco product, uncomplicated
CPT/HCPCS: 69209; 99204; 99213; G0463

== ENCOUNTER 2024-06-28 13:40 | Outpatient (CLI) | payer OTHER, SELFPAY ==
--- NOTE | 2024-06-28 13:47 | MM_ITS ---
PROCEDURE INFORMATION: Exam: MG Bilateral Screening 3D Mammography Exam date and time: 06/28/2024 1:53 PM Age: 58 years old Clinical indication: Screening examination. TECHNIQUE: Imaging protocol: Bilateral Screening tomosynthesis and 2D mammography including computer-aided detection (CAD) when performed. COMPARISON: No relevant prior studies available. FINDINGS: MAMMOGRAPHY: Breast composition: There are scattered areas of fibroglandular density. Mass: None. Architectural distortion: None. Calcifications: No suspicious calcifications. Asymmetric density: None. Skin thickening: None. Axillary adenopathy: None. IMPRESSION: No mammographic evidence of malignancy. Annual screening is recommended unless otherwise clinically indicated. ASSESSMENT: BI-RADS Category 1: Negative.
== END 2024-06-28 23:59 | disposition home or self-care (01) ==
LOC: RAD 13:41
PROVIDERS: PCP Nurse Practitioner; Visit Provider Nurse Practitioner
DX: Z12.31 Encounter for screening mammogram for malignant neoplasm of breast (principal)
CPT/HCPCS: 77063; 77067

== ENCOUNTER 2024-06-29 12:56 | Emergency (ER) | payer OTHER, SELFPAY ==
[2024-06-29 13:00] VITALS: BP 122/66; PULSE 52; RESP 16; TEMP 36.7; O2SAT 99; BMI 21.6
--- NOTE | 2024-06-29 13:20 | HMH.EDGENADL ---
Discharge Plan Disposition Patient Disposition: Home, Self-Care Condition: Good Prescriptions Prescriptions: New methocarbamol 750 mg tablet 750 mg PO Q8H PRN (Reason: pain) Qty: 20 0RF diclofenac sodium [Voltaren Arthritis Pain] 1 % gel 4 g topical QID PRN (Reason: pain) Qty: 50 0RF Rx Instructions: apply to knee No Action levothyroxine 75 mcg tablet 75 mcg PO DAILY Patient Comments: TAKE 1 TABLET BY MOUTH ONCE DAILY IN THE MORNING ON AN EMPTY STOMACH sertraline 50 mg tablet 50 mg PO DAILY Patient Comments: TAKE 1 TABLET BY MOUTH ONCE DAILY FOR 90 DAYS ijkvrijb-yehynafcq-TL 3.5-10,000-1 mg/mL-unit/mL-% solution 4 drp Ear-Left Q8H 7 Days Qty: 10 0RF amoxicillin 875 mg tablet 875 mg PO Q12H Qty: 20 0RF Referrals Follow up/Referrals: Samy Edward DO [Staff Physician] - See instructions Patrica Mcclain APRN [Primary Care Provider] - See instructions Activity Restrictions/Add. Instructions Additional Instructions/Restrictions: You were evaluated in the emergency department today. Please call Dr. Edward's office to schedule an appointment. 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 You may also take Tylenol every 4-6 hours as needed for pain. Rest, ice, and elevate your knee to reduce pain and swelling. Clinical Impressions Clinical Impression: Richardson's cyst Stand Alone Forms Stand Alone Forms: Work/School Release Instructions Patient Instructions: DI for Richardson Cyst, DI for Acute Pain -- Adult Print Language Print Language: Latvian Discharge ED Provider: Patrica Espinoza General Adult HPI General Chief complaint: PAIN Stated complaint: bakers cyst back of rt knee Time Seen by Provider: 06/29/24 13:05 Mode of Arrival: Ambulatory Source of Information: Patient Description of Symptoms (Recalled from ER Triage Doc. by RN): RIght knee bakers cyst. Trying to get an appointment with Dr. Edward. History of Present Illness HPI narrative: This patient is a 58-year-old female with a history of right Richardson's cyst presenting to the emergency department for evaluation with concern for increasing size of the cyst and increased pain. She states that she is not having pain on the medial joint line of her knee. No falls or injuries. She follows with Dr. Edward for this and has had prior injection and she is requesting to have it aspirated. She states that she tried to get in with them but they are not in clinic Related Data Home Medications ?Medication ?Instructions ?Recorded ?Confirmed levothyroxine 75 mcg tablet 75 mcg PO DAILY 07/26/23 07/26/23 sertraline 50 mg tablet 50 mg PO DAILY 07/26/23 07/26/23 Previous Rx's ?Medication ?Instructions ?Recorded amoxicillin 875 mg tablet 875 mg PO Q12H #20 tabs 07/26/23 [id number]-lkgbcojae-falfumeib 3.5 4 drp Ear-Left Q8H 7 days #10 mL 07/26/23 mg/mL-10,000 unit/mL-1 % ear solution diclofenac sodium 1 % topical gel 4 g topical QID PRN pain #50 grams 06/29/24 (Voltaren Arthritis Pain) methocarbamol 750 mg tablet 750 mg PO Q8H PRN pain #20 tabs 06/29/24 Allergies Allergy/AdvReac Type Severity Reaction Status Date / Time No Known Allergies Allergy Verified 06/20/23 10:14 [facility] Disclaimer: The information contained in this section may have been updated after the patient was seen, as this information can be updated by other users. 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 caffeine: Yes special olga needs: No agree to transfusion: No do you feel safe at home: Yes victim of physical abuse: No victim of emotional abuse: No victim of sexual abuse: No would you like helpful sources: No Have you lived/traveled outside [place] in past 30 days?: No Contact w/someone who lives/traveled outside US past 30 days?: No Exposure to someone with infectious disease in past 14 days?: No Do you have a fever (greater than 100.4 F or 38 C)?: No Have you tested positive for COVID-19?: No Exposed to someone with COVID-19 in past 14 days?: No Do you have a sore throat?: No Do you have a cough?: No Do you have any weakness?: No Do you have any diarrhea?: No Are you experiencing any unusual bleeding?: No Do you have any muscle aches/pain?: No Do you have any abdominal pain?: No Are you experiencing loss of taste or smell?: No Other Medical History Have you received the Flu Vaccine for this season: No Have you received the Pneumonia Vaccine: No ROS Obtained: Yes All systems reviewed & no additional complaints except as documented Physical Exam General General appearance: alert and in no apparent distress Head Head exam: atraumatic and normocephalic Eye Eye exam: Present normal appearance, PERRL and EOMI ENT ENT exam: Present normal exam, normal oropharynx, mucous membranes moist and normal external ear exam Neck Neck exam: Present normal inspection, full ROM and trachea midline; Absent tenderness Chest Chest inspection: Present normal inspection and symmetric chest wall rise; Absent tenderness Respiratory Respiratory exam: Present normal lung sounds bilaterally; Absent respiratory distress, wheezes, stridor or accessory muscle use Cardiovascular Cardiovascular exam: Present regular rate and normal rhythm Abdominal Exam Abdominal exam: Present soft; Absent distention, tenderness or guarding Extremities Exam Extremities exam: Present tenderness, normal capillary refill and other (R knee popliteal cyst that is TTP. no redness, warmth, skin changes. Neurovascularly intact distally); Absent full ROM or edema Back Exam Back exam: Present normal inspection and full ROM; Absent tenderness Neurological Exam Neurological exam: Present alert, oriented X3, CN II-XII intact and normal gait; Absent motor sensory deficit Psychiatric Psychiatric exam: Present normal affect and normal mood Skin Skin exam: Present warm and dry Medical Decision Making Medical Records Medical records reviewed: Yes I reviewed the patient's medical records. Screening: Per USPSTF and CDC recommendations, given the prevalence of disease in our region, it is our hospital?s policy to screen for HIV and viral Hepatitis for all patients aged 18 and over and those with ongoing risk factors. [place] Inquiry Pt receiving controlled substance: No Vital Signs: 05/24/25 13:00 Temperature 98.0 F Temperature Source Oral Pulse Rate [Right] 52 L Respiratory Rate 16 Blood Pressure [Right Arm] 122/66 Blood Pressure Mean [Right Arm] 84 Blood Pressure Source [Right Arm] Automatic Cuff 02 Sat by Pulse Oximetry 99 Oxygen Delivery Method Room Air Lab Data Lab results reviewed: Yes I reviewed the patient's lab results. Orders (Tests/Meds): ED MEDICATIONS Discontinued Medications Generic Name Dose Route Start Last Admin Trade Name No PRN Reason Stop Dose Admin Acetaminophen 1,000 mg 06/29/24 13:16 06/29/24 13:26 Acetaminophen 500mg Tab PO 06/29/24 13:17 1,000 mg ONCE ONE Administration Ketorolac Tromethamine 30 mg 06/29/24 13:16 06/29/24 13:25 Ketorolac 30mg/Ml Vial IM 06/29/24 13:17 30 mg ONCE ONE Administration Lidocaine 1 each 06/29/24 13:16 06/29/24 13:26 Lidocaine 5% Transdermal Patch TD 06/29/24 13:17 1 each ONCE ONE Administration Methocarbamol 500 mg 06/29/24 13:16 06/29/24 13:25 Methocarbamol 500mg Tablet PO 06/29/24 13:17 500 mg ONCE ONE Administration Medical Decision Narrative: In summary, this patient is a 58-year-old female presenting to the Emergency Department for evaluation of increasing pain in the size of a right Richardson's cyst. Differential diagnoses considered include but are not limited to popliteal cyst, cellulitis, bursitis. Ruling out the most morbid conditions drove assessment. I reviewed patient's past medical records and noted prior orthopedics evaluations with last 1 being 06/20/2023. On exam, the patient is sitting upright in no acute distress. She has a right popliteal cyst but no redness, warmth, or skin changes. She is neurovascularly intact. At this time, I do not feel that the patient has any emergent pathology that warrants further evaluation at this time. I feel she has increasing pain from increasing size of the popliteal cyst and is appropriate for discharge with orthopedics for further assessment. I gave the patient IM Toradol, oral Robaxin, oral Tylenol, and topical Lidoderm patch with symptomatic improvement of pain. She was given prescriptions for Robaxin and Voltaren cream and instructions with close follow-up with orthopedics. She was given strict return precautions Critical Care Critical Care Time Critical Care Time: No
[2024-06-29] MEDS: METHOCARBAMOL 500MG TABLET 500 MG PO (13:25)
[2024-06-29] MEDS: KETOROLAC 30MG/ML VIAL 30 MG IM (13:25)
[2024-06-29] MEDS: ACETAMINOPHEN 500MG TAB 1000 MG PO (13:26)
[2024-06-29] MEDS: LIDOCAINE 5% TRANSDERMAL PATCH 1 EACH TD (13:26)
[2024-06-29 13:37] VITALS: BP 122/66; PULSE 52; RESP 16; TEMP 36.7; O2SAT 99
== END 2024-06-29 13:38 | disposition home or self-care (01) ==
PROVIDERS: Emergency Provider Emergency Medicine; PCP Nurse Practitioner
DX: M71.21 Synovial cyst of popliteal space [Baker], right knee (principal)
CPT/HCPCS: 96372; 99283; J1885

== ENCOUNTER 2024-07-17 16:40 | Outpatient (CLI) | payer OTHER, SELFPAY ==
--- OUTSIDE RECORDS SUMMARY | 2024-07-17 16:43 | XMS_ITS | Clinical Summary ---
Author Organization Healthcare Address [address] [id number] Care Team Providers Care Maintenance Team Leader Name Role Phone Ruy Dodson MD Primary Care Provider [phone] Allergies No known active allergies Medications sertraline (Zoloft) 50 MG tablet TAKE 1 TABLET BY MOUTH ONCE DAILY FOR 90 DAYS 3 Active Synthroid 137 MCG tabletIndications:A cquired hypothyroidism Take 1 tablet (137 mcg) by mouth 1 (one) time each day. 90 tablet 3 3 Active Active Problems No known active problems Family History Medical History Relation Name Comments Lauri's thyroiditis Father Thyroid disease Father's Sister Relation Name Status Comments Father Father's Sister Alive Social History Tobacco Use Types Packs/Day Years Used Date Smoking Tobacco: Every Day Smokeless Tobacco: Never Tobacco Cessation:Ready to Q uit: No Comments:Vapes every day, smoking for past 30 years Alcohol Use Standard Drinks/Week Comments Yes 0 (1 standard drink = 0.6 oz pur e alcohol) occasionally Comments No Sex and Gender Information Value Date Recorded Sex Assigned at Not on file Legal Sex Female 8:35 PM EDT Gender Identity Not on file Sexual Orientation Not on file 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 Not on file Not on file Not on f ile Last Filed Vital Signs Vital Sign Reading Time Taken Comments Blood Pressure 128/78 01/20/2023 8:05 AM EST Pulse 61 01/20/2023 8:05 AM EST Temperature - - Respiratory Rate - - Oxygen Saturation - - Inhaled Oxygen Concentration - - Weight 60.7 kg (133 lb 13.1 oz) 01/20/2023 8:05 AM EST Height 165.1 cm (5' 5 ) 01/20/2023 8:05 AM EST Body Mass Index 22.27 01/20/2023 8:05 AM EST Plan of Treatment Health Maintenance Due Date Last Done Comments [facility]-Depression Screening 1964 [facility]-HIV Screening 1964 [facility]-Hepatitis C Screening 1964 [facility]-Infant/Child/Adol SDOH Screenings 1964 [facility]- SDOH Screenings 1982 [facility]-Adult SDOH Screenings 1982 [facility]-DTaP,Tdap,and Td Vaccine s (1 - Tdap) 12/12/1983 [facility]-Hepatitis B Vaccines (1 of 3 - 19+ 3-dose series) 12/12/1983 [facility]-Pap Smear 1985 [facility]-Cervical Cancer Screening 1994 [facility]-HPV/Cotest 1994 CT Colonography 2009 Colonoscopy 2009 FIT-DNA 2009 FIT 2009 FOBT 2009 Sigmoidoscopy 2009 [facility]-Colorectal Cancer Screening 2009 [facility]-Breast Cancer Screening 2014 [facility]-Pneumococcal Vaccine: 50 + Years (1 of 1 - PCV) 2014 [facility]-Zoster Vaccines (1 of 2) 2014 [id number] Vaccine (2 - 20 24-25 season) 2023 07/18/2020 [facility]-Influenza Vaccine ([place] n Ended) 2024 HPV Vaccines Aged Out No longer eligi ble based on patient's age to complete this topic [facility]-HIB Vaccines Aged Out No longer e ligible based on patient's age to complete this topic [facility]-Hepatitis A Vaccines Aged Out No longer eligible based on patient's age to complete this topic [facility]-IPV Vaccines Aged Out No longer e ligible based on patient's age to complete this topic [facility]-Rotavirus Vaccines Aged Out No lo nger eligible based on patient's age to complete this topic Insurance [facility] MEDICAID Care Teams Maintenance Team Leader Relationship Specialty Start Date End Date Ruy Dodson MD [address] [place] [address] #1 [address]1 [place] Ruiz [id number] PCP - General 09/15/22
--- NOTE | 2024-07-17 17:15 | MR_ITS ---
PROCEDURE INFORMATION: Exam: MR Right Lower Extremity Joint Without Contrast, Knee Exam date and time: 07/17/2024 5:00 PM Age: 58 years old Clinical indication: Other: Cyst; Additional info: Right knee pain TECHNIQUE: Imaging protocol: Magnetic resonance imaging of the right lower extremity joint without contrast. Exam focused on the knee. COMPARISON: CR XR KNEE RT 3V 05/09/2023 9:59 AM FINDINGS: Bones/joints: Full-thickness cartilage loss in the medial patellar facet, with trace subchondral edema. Regions of full-thickness cartilage fissuring in the lateral facet. Full-thickness cartilage loss with in the medial trochlear facet, immediately anterior to the weight-bearing region, with moderate patchy subchondral edema. Small joint effusion. Fat pads of knee: Moderate edema in the superior central and lateral Hoffa's fat pad, suspicious for entrapment. Periarticular cysts: Medial meniscus: Moderate intrasubstance degeneration with mild superior surface fraying in the medial meniscus posterior body and horn. Lateral meniscus: Moderate intrasubstance degeneration with associated degenerative radial tear in the lateral meniscus anterior horn and body. Anterior cruciate ligament: Unremarkable. No tear. Posterior cruciate ligament: Unremarkable. No tear. Medial capsule and supporting structures: Unremarkable. No tear. Lateral capsule and supporting structures: Unremarkable. No tear. Extensor mechanism of knee: Unremarkable. No tear. Soft tissues: Popliteal cyst measuring 3.4 x 4.5 x 8.0 cm, rupturing/dissecting into the calf intramuscular compartments. No appreciable mural nodules. IMPRESSION: 1. Regions of full-thickness cartilage fissuring in the lateral facet. Full-thickness cartilage loss with in the medial trochlear facet, immediately anterior to the weight-bearing region, with moderate patchy subchondral edema. 2. Moderate edema in the superior central and lateral Hoffa's fat pad, suspicious for entrapment. 3. Popliteal cyst measuring 3.4 x 4.5 x 8.0 cm, rupturing/dissecting into the calf intramuscular compartments. 4. Moderate intrasubstance degeneration with associated degenerative radial tear in the lateral meniscus anterior horn and body.
== END 2024-07-17 23:59 | disposition home or self-care (01) ==
LOC: RAD 16:41
PROVIDERS: PCP Nurse Practitioner; Visit Provider Physician Assistant
DX: M66.0 Rupture of popliteal cyst (principal); M79.4 Hypertrophy of (infrapatellar) fat pad; S83.281A Other tear of lateral meniscus, current injury, right knee, initial encounter; X58.XXXA Exposure to other specified factors, initial encounter
CPT/HCPCS: 73721

== ENCOUNTER 2024-09-17 08:47 | Outpatient (CLI) | payer OTHER, SELFPAY ==
--- NOTE | 2024-09-17 08:51 | XR_ITS ---
FINAL REPORT CLINICAL HISTORY: ARTHRITIS FINDINGS: PA and lateral views of the chest are obtained. There is no prior exam for comparison. The cardiac and mediastinal silhouettes are within normal limits. The lungs are clear. There is no pleural effusion, pneumothorax, or acute osseous abnormality. IMPRESSION: No radiographic evidence of acute cardiac or pulmonary disease. Reviewed, Interpreted and Dictated by Jeny Hanson MD Transcribed by Patricia Curiel Authenticated and [facility]
--- OUTSIDE RECORDS SUMMARY | 2024-09-17 08:51 | XMS_ITS | Clinical Summary ---
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
== END 2024-09-17 23:59 | disposition home or self-care (01) ==
LOC: RAD 08:48
PROVIDERS: PCP Nurse Practitioner; Visit Provider Nurse Practitioner
DX: Z01.818 Encounter for other preprocedural examination (principal); M17.10 Unilateral primary osteoarthritis, unspecified knee
CPT/HCPCS: 71046